=== PATIENT | female | born 2000 | race Caucasian/White ===

== ENCOUNTER 2024-03-16 19:19 | Observation (INO) | payer MEDICAID, SELFPAY ==
[2024-03-16] VITALS (7 sets, daily range): BP systolic 113–129; BP diastolic 74–94; PULSE 88–114; RESP 15–17; TEMP 36.8–37.1; O2SAT 100; BMI 23.8
--- NOTE | 2024-03-16 19:39 | USR_ITS ---
PROCEDURE INFORMATION: Exam: US Pelvis, Complete, Non-Obstetric Exam date and time: 03/16/2024 7:57 PM Age: 23 years old Clinical indication: Other: Heavy vaginal bleeding 2 weeks S/P miscarriage; Prior surgery; Surgery date: 6+ months; Surgery type: Prior csection [id number]; Additional info: Stillvaginal bleeding, miscarriage 2 weeks ago, tachycardic TECHNIQUE: Imaging protocol: Transabdominal pelvic nonobstetric ultrasound. Complete exam. Real time ultrasound with image documentation. COMPARISON: No relevant prior studies available. FINDINGS: Uterus: The uterus measures approximately 9.4 x 4.5 x 3.6 cm. There is 5.7 x 2.7 x 4.1 cm heterogeneous material in the lower endometrial canal with vascular markings, consistent with retained products of conception. The endometrium measures proximally 8 mm. Right ovary/adnexa: Ovary is normal. No mass. Normal blood flow. Left ovary/adnexa: Ovary is normal. No mass. Normal blood flow. Intraperitoneal space: No intraperitoneal fluid. Urinary bladder: Not attempted. US/US pelvic limited [id number] IMPRESSION: There is heterogeneous material in the lower endometrial canal with vascular markings, consistent with retained products of conception.
--- NOTE | 2024-03-16 19:41 | W.ED.FEMALGU ---
HPI - Female Genitourinary General: Chief complaint: Vaginal Bleeding Stated complaint: miscarrige 2wk severe bleeding clots worse now Time Seen by Provider: 03/16/24 19:34 History of Present Illness: Patient presents to the ER with complaints of vaginal bleeding. She soaking 1 pad about every 30 minutes or so. Patient had a miscarriage spontaneously about 2 weeks ago. She was approximately 9 weeks at that time. She did not have any care and has not sought any care after the miscarriage. Patient is tachycardic upon arrival with a heart rate of about 114 beats a minute. Review of Systems General: Reports: 10 or more systems reviewed and unremarkable except in HPI and below Physical Exam Const: COMMON NORMALS: no acute distress, average body habitus, patient oriented x3, no limitations, healthy appearing, alert and well nourished HENMT: COMMON NORMALS: normocephalic, atraumatic, hearing grossly normal bilaterally, external ears normal, Normal external nose present and moist oral mucous membranes HEAD & SCALP: normocephalic and atraumatic NOSE: Normal external nose present EXTERNAL EAR: Yes external ears normal Neck/C-Spine: COMMON NORMALS: full ROM, no lymphadenopathy, supple, no meningeal signs, no JVD and Thyroid normal THYROID: Thyroid normal Chest: COMMONS NORMALS: normal inspection of the chest and normal palpation of entire chest wall Resp: COMMON NORMALS: normal respiratory effort, No retractions, No use of accessory muscles and clear to auscultation bilaterally AUSCULTATION: clear to auscultation bilaterally Cardio: COMMON NORMALS: no JVD, regular rhythm, S1 normal heart sound present, S2 normal heart sound present, No gallops present (Cardio), No clicks present (Cardio), No murmurs present (Cardio) and No rub (Cardio); negative for regular rate (Tachycardic) RATE: abnormal rate (Tachycardic) RHYTHM: regular rhythm HEART SOUNDS: S1 normal heart sound present and S2 normal heart sound present GI: COMMON NORMALS: Normal to inspection, nondistended, normoactive bowel sounds present, Soft to palpation, non-tender, No hepatosplenomegaly present and no masses PALPATION: Yes Soft to palpation and Yes No hepatosplenomegaly present Neuro: COMMON NORMALS: patient oriented x3 SENSORIUM/ORIENTATION: Yes alert MENINGEAL SIGNS: Yes no meningeal signs Course Vital Signs: Vital signs: Vital Signs Temperature 98.3 F 03/16/24 19:24 Pulse Rate 103 H 03/16/24 22:00 Respiratory Rate 15 03/16/24 21:53 Blood Pressure 117/81 03/16/24 22:00 Pulse Oximetry 100 03/16/24 22:00 Oxygen Delivery Me thod Room Air 03/16/24 22:00 MDM - Female Medical Decision Making Discussed this case with the patient as she still has products of retained conception has been 2 weeks, discussed this with Dr. Sanches the OB on-call, we will admit the patient to the unit and she will see Dr. sanches in the morning and have a probable D&C. Medical Records I reviewed the patient's medical records. Lab Data I reviewed the patient's lab results. 03/16/24 19:42 03/16/24 19:42 Radiology Impressions Pelvis Ultrasound 03/16/24 19:39 IMPRESSION: There is heterogeneous material in the lower endometrial canal with vascular markings, consistent with retained products of conception. Laboratory Results WBC 4.78 10^3/uL (3.29-11.43) 03/16/24 19:42 RBC 3.57 10^6/uL (3.85-5.65) L 03/16/24 19:42 Hgb 10.30 g/dL (11.27-16.99) L 03/16/24 19:42 Hct 30.8 % (36-47) L 03/16/24 19:42 MCV 86.3 fl (85-98) 03/16/24 19:42 MCH 28.9 pg (27-33) 03/16/24 19:42 MCHC 33.4 g/dL (30-55) 03/16/24 19:42 RDW 12.2 % (12.1-15.1) 03/16/24 19:42 Plt Count 276 10^3/cmm (157-399) 03/16/24 19:42 MPV 9.7 fL (7.4-10.4) 03/16/24 19:42 Neut % (Auto) 63.4 % 03/16/24 19:42 Lymph % (Auto) 24.9 % 03/16/24 19:42 [place] % (Auto) 9.4 % 03/16/24 19:42 Eos % (Auto) 1.5 % 03/16/24 19:42 Baso % (Auto) 0.6 % 03/16/24 19:42 Neut # (Auto) 3.03 10^3/uL (1.8-7.7) 03/16/24 19:42 Lymph # (Auto) 1.2 10^3/uL (0.8-4.8) 03/16/24 19:42 [place] # (Auto) 0.5 10^3/uL (0.2-0.9) 03/16/24 19:42 Eos # (Auto) 0.1 10^3/uL (0.0-0.8) 03/16/24 19:42 Baso # (Auto) 0.0 10^3/uL (0.0-0.1) 03/16/24 19:42 Nucleated RBC % (auto) 0 % 03/16/24 19:42 Nucleated RBCs # 0.0 /100WBC 03/16/24 19:42 PT 13.60 SECONDS (12.1-14.9) 03/16/24 19:42 INR 1.01 (0.8-1.2) 03/16/24 19:42 Sodium 139 mmol/L (136-145) 03/16/24 19:42 Potassium 4.2 mmol/L (3.5-5.1) 03/16/24 19:42 Chloride 103 mmol/L (98-107) 03/16/24 19:42 Carbon Dioxide 22 mmol/L (22-29) 03/16/24 19:42 Anion Gap 18.2 (5-19) 03/16/24 19:42 BUN 8 mg/dL (6-20) 03/16/24 19:42 Creatinine 0.9 mg/dL (0.5-0.9) 03/16/24 19:42 GFR Calculation 77.6 mL/min (90-130) L 03/16/24 19:42 Glucose 92 mg/dL (65-115) 03/16/24 19:42 Calculated Osmolality 286 mOsm/kg (285-295) 03/16/24 19:42 Calcium 9.5 mg/dL (8.5-10.5) 03/16/24 19:42 Total Bilirubin 0.2 mg/dL (0.15-1.2) 03/16/24 19:42 AST 20 U/L (0-32) 03/16/24 19:42 ALT 15 U/L (0-33) 03/16/24 19:42 Alkaline Phosphatase 70 U/L (35-105) 03/16/24 19:42 Total Protein 7.9 g/dL (6.6-8.7) 03/16/24 19:42 Albumin 4.5 g/dL (3.5-5.2) 03/16/24 19:42 Globulin 3.4 g/dL (1.3-4.6) 03/16/24 19:42 All radiology interpretation(s) finalized by discharge Discharge Plan Discharge Patient Disposition: Placed in Observation Admit Provider: Vivienne Sanches Clinical Impression: Incomplete , Retained products of conception Coding Level of Care Code ED Platform Power Technician for Veronica Panda
[2024-03-16 19:47] LABS: Basophils % 0.6 %; Eosinophils # 0.1 10^3/uL (0.0-0.8); Eosinophils % 1.5 %; Hematocrit 30.8 % (36-47); Lymphocytes # 1.2 10^3/uL (0.8-4.8); Lymphocytes % 24.9 %; Mean Corpuscular HGB Conc 33.4 g/dL (30-55); Mean Corpuscular Hemoglobin 28.9 pg (27-33); Mean Corpuscular Volume 86.3 fl (85-98); Mean Platelet Volume 9.7 fL (7.4-10.4); Monocytes # 0.5 10^3/uL (0.2-0.9); Monocytes % 9.4 %; Neutrophils # 3.03 10^3/uL (1.8-7.7); Neutrophils % 63.4 %; Nucleated Red Blood Cells % 0 %; Platelet Count 276 10^3/cmm (157-399); Red Blood Count 3.57 10^6/uL (3.85-5.65); Red Cell Distribution Width 12.2 % (12.1-15.1); White Blood Count 4.78 10^3/uL (3.29-11.43)
[2024-03-16 20:02] LABS: INR 1.01 (0.8-1.2)
[2024-03-16 20:08] LABS: Alanine Aminotransferase 15 U/L (0-33); Albumin Level 4.5 g/dL (3.5-5.2); Alkaline Phosphatase 70 U/L (35-105); Anion Gap 18.2 (5-19); Aspartate Amino Transferase 20 U/L (0-32); Blood Urea Nitrogen 8 mg/dL (6-20); Calcium 9.5 mg/dL (8.5-10.5); Carbon Dioxide 22 mmol/L (22-29); Chloride 103 mmol/L (98-107); Creatinine Clr Calc Pharmacy 82.3329; Globulin 3.4 g/dL (1.3-4.6); Glomerular Filtration Rate 77.6 mL/min (90-130); Glucose 92 mg/dL (65-115); Osmolality Calculated 286 mOsm/kg (285-295); Potassium 4.2 mmol/L (3.5-5.1); Sodium 139 mmol/L (136-145); Total Bilirubin 0.2 mg/dL (0.15-1.2); Total Protein 7.9 g/dL (6.6-8.7)
[2024-03-16] MEDS: sodium chloride 0.9% 1,000 ML 999 ML IV (20:28)
--- NOTE | 2024-03-16 22:14 | PC.NURSE ---
report called to Chantell nurse in OB at this time.
[2024-03-17] VITALS (14 sets, daily range): BP systolic 99–123; BP diastolic 42–75; PULSE 57–94; RESP 16; TEMP 36.2–36.8; O2SAT 97–100; BMI 23.8
--- NOTE | 2024-03-17 01:22 | PC.NURSE ---
2300- ping pong ball size clot noted in urine hat when dumping void in toilet. pt expressed she had passed 2 clots similar to this size prior to coming to the hospital tonight.
--- NOTE | 2024-03-17 07:33 | P.HP_ITS ---
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 Patient reported that she had a spontaneous AB 2 weeks ago followed by light bleeding that increased to where she was solving a pad every 30 minutes yesterday. Patient denies receiving care, and she is unsure of her LMP. OB ultrasound?indicates retained products in the lower uterine cavity. Discussion of D&C to remove retained products, risk of uterine perforation bleeding and infection. Patient understands and consents for procedure. 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 2 Other Female Reproductive History: Hx Age of Menarche: 12 Menstrual flow: normal/abnormal: normal History History History 2 2 Term 1 Miscarriages/Ectopic 1 Living Children 1 Vitals/I&O/Wt Last Vital Signs Temp 98.1 F 03/17/24 06:00 Pulse 70 03/17/24 06:00 Resp 16 03/17/24 06:00 BP 99/65 03/17/24 06:00 Pulse Ox 99 03/17/24 06:00 O2 Del Method Room Air 03/17/24 06:00 03/16/24 03/17/24 03/17/24 22:59 06:59 14:59 Intake Total 1000 / 1000 Output Total 350 / 350 Balance 1000 / 1000 -350 / 650 Weight last 48 hrs Weight 58.967 kg Weight 58.967 kg Weight 58.967 kg Physical Exam 2 Narrative: 23-year-old female awake and alert x 3 n o acute distress Const: COMMON NORMALS: no acute distress, patient oriented x3, healthy appearing, alert and well nourished HENMT: COMMON NORMALS: normocephalic and dentition normal Resp: COMMON NORMALS: normal respiratory effort and clear to auscultation bilaterally Cardio: COMMON NORMALS: regular rate, regular rhythm and No murmurs present (Cardio) Back/Pelvis: OTHER: Abdomen?soft flat, no tenderness to palpation Pfannenstiel incision scar noted nontender. PAD with light bloodstained lochia with few clots noted. Extremity: COMMON NORMALS: normal to inspection, no clubbing, cyanosis or edema, no calf tenderness and no pedal edema Neuro: COMMON NORMALS: patient oriented x3, CN's II-XII intact bilaterally, moves all extremities, no focal motor deficits and no sensory deficits noted Data 03/16/24 19:42 03/16/24 19:42 Results Labs OB ([facility]): 2 Blood Type O Negative 03/17/24 Antibody Screen Positive 03/17/24 Hct 30.8 % (36-47) L 03/16/24 Hgb 10.30 g/dL (11.27-16.99) L 03/16/24 Rho(D) Type Rh negative 03/17/24 Plt Count 276 10^3/cmm (157-399) 03/16/24 A&P Assessment and plan (1) Incomplete : (2) Retained products of conception: (3) Rh D negative blood type: Will receive RhoGAM before discharge Plan Schedule suction D&C to clear uterus of retained products. Attestations 2 Medical Necessity Statement*: Patient admitted for surgical treatment of retained products for incomplete AB. Coding Level of Care Code Acute Code for g Fwd Diagnoses Incomplete O03.4 Retained products of conception Rh D negative blood type Z67.91
--- NOTE | 2024-03-17 09:15 | P.ANESASSM_ITS ---
Pre-Anesthetic Assessment Height/Weight: Height 1.57 m Weight 58.967 kg Temp Pulse Resp BP Pulse Ox O2 Del Method 97.5 F L 87 16 114/73 97 Room Air 03/17/24 08:43 03/17/24 08:43 03/17/24 08:43 03/17/24 08:43 03/17/24 08:43 03/17/24 08:43 Operation Date: 03/17/24 09:00 Proposed Procedures p Dilation And Curettage w/ Suction(Not Applicable) - Vivienne Brian DO Familial anesthetic complications: None Was Beta Hermelindo taken within 24 hours: N/A Was Clonidine taken within 24 hours: N/A Last intake: > 8 hrs Social No alcohol and No tobacco Exam alert, oriented x 3, clear to auscultation bilaterally and regular rate & rhythm Airway Mallampati: Class II Dentition: full Anesthetic Plan ASA status: 1 Anesthesia: General Other: was 9.5 weeks , miscarried 2 weeks ago Risk of > 500 ml blood loss (7ml/kg in children): No Medications/Allergies Allergies Allergy/AdvReac Type Severity Reaction Status Date / Time No Known Allergies Allergy Verified 03/16/24 19:29 Data Anesthesia 03/16/24 19:42 03/16/24 19:42 Short CBC 03/16/24 Range/Units 19:42 WBC 4.78 (3.29-11.43) 10^3/uL Hgb 10.30 L (11.27-16.99) g/dL Hct 30.8 L (36-47) % MCV 86.3 (85-98) fl Plt Count 276 (157-399) 10^3/cmm Neut % (Auto) 63.4 % Neut # (Auto) 3.03 (1.8-7.7) 10^3/uL BMP 03/16/24 19:42 Sodium 139 Potassium 4.2 Chloride 103 Carbon Dioxide 22 BUN 8 Creatinine 0.9 Glucose 92 Calcium 9.5 Liver Function 03/16/24 Range/Units 19:42 Total Bilirubin 0.2 (0.15-1.2) mg/dL AST 20 (0-32) U/L ALT 15 (0-33) U/L Alkaline Phosphatase 70 (35-105) U/L Albumin 4.5 (3.5-5.2) g/dL Blood Bank 03/17/24 00:20 Blood Type O Negative Rho(D) Type Rh negative Antibody Screen Positive Coags 03/16/24 19:42 PT 13.60 INR 1.01 Cardiac Studies: 2 No Data to Display
--- NOTE | 2024-03-17 09:40 | PC.NURSE ---
Pt to OR per wheelchair with preop nurse Mariah Mcbride RN
[2024-03-17] MEDS: cefTRIAXone 1,000 mg SDV 1000 MG IVP (09:59)
--- NOTE | 2024-03-17 10:38 | PM.OP ---
Operative Report Date of procedure: March 17, 2024 Pre-op diagnosis: Incomplete AB Vaginal bleeding Post-op diagnosis: same Post-op diagnosis: Incomplete AB Post-op findings: Moderate products of conception with malodorous discharge. Procedure done: Suction D&C Specimens removed/disposition: Products of conception Pathology: Products of conception sent to pathology Surgeon: Vivienne Brian DO Anesthesia: General Estimated blood loss: 300ml Urine output: 50ml Complications: None Findings: Products of conception Brief History: 23-year-old female G2, P1 Ab1 admitted through the emergency room last night with complaints of spontaneous AB 2 weeks ago and continued bleeding which increased to a moderate intensity swelling 1 pad every 20 to 30 minutes. Patient was admitted observation after ultrasound report of retained products. Procedure: 23-year-old female seen on labor and delivery/ cox with complaints of moderate vaginal bleeding after spontaneous AB 2 weeks ago. Patient stated bleeding had decreased but still swelling a pad at least per hour. Discussion of incomplete AB with retained products treatment options to weight versus suction D&C. Patient elected to proceed with suction D&C to clear uterus of products. Risk of bleeding uterine perforation and injury to pelvic organs reviewed. Consent signed. Patient was transported to surgical suite after being consulted by anesthesia. Patient was placed in the supine position general anesthesia given. Patient repositioned in dorsolithotomy position pelvis prepped and draped in the standard fashion. A speculum was placed in the vaginal vault and the cervix noted to be dilated with moderate clots at the cervical os. A straight to tenaculum was used to grasp the cervix and a #8 disposable suction curette was placed and the cervix and products removed by suction. Moderate amount of products were removed and sharp curettage followed still removing products. More suctioning was performed followed by sharp curettage. The uterus was massaged and Pitocin added to the current infusing IV bag in a bolus manner. Bleeding, slowed to minimum. Procedure was concluded straight to tenaculum removed from the cervix a sponge stick applied to tenaculum sites with good hemostasis. Patient stable and repositioned. Following recovery patient will be transferred back to and discharge to home this evening. Patient was given 1 g of Rocephin IV piggyback due to the odorous discharge noted...
--- NOTE | 2024-03-17 10:40 | ANE.PACU2 ---
Inpatient post-anesthesia follow up: Airway intact: Yes Vital signs: Temperature 97.2 F Pulse Rate 68 Respiratory Rate 16 Blood Pressure 123/72 Pulse Oximetry 98 Oxygen Delivery Me thod Room Air Oxygen Flow Rate Fraction of Inspir ed Oxygen Hydration adequate: Yes Nausea and vomiting: No Pain level: 1 Mental status: Baseline
--- NOTE | 2024-03-17 10:52 | PC.NURSE ---
PACU brought pt IN [facility] TO OB 8, TRANSFERRED TO OB BED
[2024-03-17] MEDS: medroxyprogesterone 150 mg/ml SDV 1 mL IM (13:58)
== END 2024-03-17 14:10 | disposition home or self-care (01) ==
LOC: ER 21:52 → OBGYN 22:12
PROVIDERS: Admitting Provider Obstetrics & Gynecology; Emergency Provider Emergency Medicine; Visit Provider Obstetrics & Gynecology
PROC: (CPT 59812; principal; 2024-03-17 09:00)
DX: O03.4 Incomplete spontaneous abortion without complication (principal); Z67.91 Unspecified blood type, Rh negative
CPT/HCPCS: 59812; 36415; 76857; 80053; 80503; 85025; 85610; 86850; 86870; 86900; 88305; 96361; 96372; 96374; 99211; 99285; G0378; J0696; J1050; J1100; J2405; J2704; J3010; J7030